=== PATIENT | female | born 1975 ===

== ENCOUNTER 2025-04-23 05:50 | Day surgery (SDC) | payer OTHER ==
[2025-04-20 08:53] VITALS: BP 103/69
[2025-04-20 09:11] LABS: BASO % 1.2 % (0.1-1.2); EOS # 0.33 (0.04-0.54); EOS % 6.7 % (0.7-7.0); LYMPH # 1.87 (1.18-3.74); LYMPH % 37.8 % (19.3-53.1); MEAN PLATELET VOLUME 9.60 fl (9.4-12.4); MONO # 0.35 (0.24-0.82); MONO % 7.1 % (4.7-12.5); NEUT # 2.34 (1.56-6.13); NEUT % 47.2 % (34.0-71.1); RED CELL DISTRIBUTION WIDTH 14.4 % (11.6-14.4)
[2025-04-20 09:14] LABS: URINE APPEARANCE Clear; URINE BILIRRUBIN Negative (NEGATIVE); URINE BLOOD Negative; URINE COLOR Yellow; URINE GLUCOSE Negative (NEGATIVE); URINE KETONE Trace (NEGATIVE); URINE LEUKOCYTE Negative; URINE NITRATE Negative; URINE PROTEIN Negative (NEGATIVE); URINE UROBILINOGEN 0.2 E.U./dl
[2025-04-20 09:15] LABS: URINE BACTERIA 573.2 uL (0.0-1933); URINE EPITHELIAL CELLS 4.9 uL (0.0-38.8); URINE RBC 2.1 uL (0.0-20.8); URINE WBC 5.0 uL (0.0-23.2)
[2025-04-20 09:20] LABS: URINE CAST 0.14 uL (0.0-1.40)
[2025-04-20 09:43] LABS: INR 1.03
[2025-04-20 09:53] LABS: ALT/SGPT 18.0 U/L (12-78); AST/SGOT 12.0 U/L (15-37); BILIRUBIN TOTAL 0.58 mg/dL (0.3-1.2); BUN CREA RATIO 26.0 (7.0-25.0); CREATININE SERUM 0.74 mg/dL (0.55-1.02); GFR 83.07; GLOBULINA 3.2 G/DL (2.4-3.5); GLUCOSE FASTING 88.0 mg/dL (65-100); OSMOLALITY SERUM 279.0 MOSM/KG (275-295)
[2025-04-20 10:01] LABS: TSH 1.63 uIU/mL (0.358-3.74)
[~2025-04-23] VITALS: Ht 165.1 cm; Wt 63.0 kg
[2025-04-23] MEDS ORDERED: CEFAZOLIN SODIUM 1,000 MG VIAL ONE (07:04)
[2025-04-23] MEDS ORDERED: CHLORHEXIDINE GLUCONATE 120 ML BOTTLE TOP ONE (07:10)
[2025-04-23] MEDS ORDERED: POVIDONE-IODINE 118 ML BOTT TOP ONE (07:10)
[2025-04-23] MEDS ORDERED: TRAMADOL HCL E100 M1 PO (09:25)
[2025-04-23] MEDS ORDERED: MONDOXYNE NL100 MG PO (09:25)
[2025-04-23] MEDS ORDERED: MORPHINE SULFATE 4 MG/ML VIAL IV PRN (09:30)
[2025-04-23] MEDS ORDERED: PROMETHAZINE HCL 50 MG/ML AMPUL IM ONE (09:30)
== END 2025-04-23 14:45 | disposition home or self-care (01) ==
LOC: CIR.AMB 05:50
PROVIDERS: ATTEND Obstetrics & Gynecology
DX: N80.03 Adenomyosis of the uterus (principal); N72 Inflammatory disease of cervix uteri; D25.0 Submucous leiomyoma of uterus; N84.0 Polyp of corpus uteri; N92.0 Excessive and frequent menstruation with regular cycle; Z88.6 Allergy status to analgesic agent